=== PATIENT | female | born 1990 | race Caucasian/White ===

== ENCOUNTER 2020-05-09 15:11 | Emergency (ER) | payer OTHER ==
[~2020-05-09] VITALS: Ht 162.6 cm; Wt 60.3 kg
--- NOTE | 2020-05-09 15:23 | NUR ---
came in for panic attack, no SOB 97% on room air, 1hr [employer], been drinking alcohol last night, to ER bed 9, hooked to monitor, changed to hosp gown, warm blanket provided. NAD noted. kept safe and comfortable. Dr Pizano at bedside
[2020-05-09] MEDS ORDERED: LORAZEPAM INJ 2 MG/ML VIAL IM ONE (16:00)
[2020-05-09] MEDS ORDERED: LORAZEPAM INJ 2 MG/ML VIAL ONE (16:19)
--- NOTE | 2020-05-09 17:16 | NUR ---
patient states "feels better". made aware
--- NOTE | 2020-05-09 17:58 | NUR ---
Patient discharged to home in stable condition. Written and verbal after care instructions given. Patient verbalizes understanding of instruction. Instructed not to drive
[2020-05-09 18:00] VITALS: BP 122/87
== END 2020-05-09 18:01 | disposition home or self-care (01) ==
LOC: ER 15:15
DX: R00.2 Palpitations (principal); F41.9 Anxiety disorder, unspecified; F14.10 Cocaine abuse, uncomplicated; R00.0 Tachycardia, unspecified
CPT/HCPCS: 93005; 96372; 99283; J2060